=== PATIENT | male | born 1995 | race Two or more races ===

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

== ENCOUNTER 2017-09-13 22:07 | Emergency (ER) | payer SELFPAY ==
[2017-09-13] MEDS: IV NORMAL SALINE 1000ML BAG 1,000 ML IV (22:55)
[2017-09-13 23:39] LABS: BILIRUBIN,URINE NEGATIVE (NEG); CLARITY,URINE CLEAR; COLOR,URINE YELLOW; GLUCOSE,URINE NEGATIVE (NEG); NITRITE,URINE NEGATIVE (NEG); PH,URINE 5.5; PROTEIN,URINE NEGATIVE (NEG-TRACE); UROBILINOGEN,URINE 0.2 mg/dL (0.2 mg/dL)
[2017-09-13 23:45] LABS: BACTERIA,URINE 0 /HPF (0-FEW); RBC,URINE 0 /HPF (0-2); SQUAMOUS EPITHELIAL CELL,UR OCC /LPF; WBC,URINE RARE /HPF (0-4)
== END 2017-09-14 00:58 | disposition home or self-care (01) ==
LOC: ER 09-14 00:58
DX: R19.7 Diarrhea, unspecified (principal)
CPT/HCPCS: 81001; 96360; 99284-25; J7030

== ENCOUNTER 2017-09-14 21:31 | Emergency (ER) | payer SELFPAY ==
[2017-09-14] MEDS: DICYCLOMINE HCL 10 MG CAPSULE PO (23:45)
== END 2017-09-15 00:20 | disposition home or self-care (01) ==
LOC: ER 09-15 00:20
DX: R19.7 Diarrhea, unspecified (principal)
CPT/HCPCS: 87045; 99283

== ENCOUNTER 2017-10-17 17:10 | Inpatient (IN) | payer SELFPAY ==
[2017-10-17 18:00] LABS: ADD MAN DIFF? NO
[2017-10-17 18:03] LABS: BASO % 1 % (0-3); EOS # 0.1 x10^3/uL (0.0-0.7); EOS % 1 % (0-3); HEMOGLOBIN 14.8 g/dL (13.0-17.5); LYMPH # 3.1 x10^3/uL (1.0-4.8); LYMPH % 47 % (24-48); MEAN CORPUSCULAR HEMOGLOBIN 27 pg (25-35); MEAN CORPUSCULAR HGB CONC 34 g/dL (31-37); MEAN CORPUSCULAR VOLUME 81 fL (79-100); MONO # 0.4 x10^3/uL (0.0-1.1); MONO % 7 % (0-9); NEUT # 2.9 x10^3uL (1.8-7.7); NEUT % 44 % (31-73); PLATELET COUNT 191 x10^3/uL (140-400); RED BLOOD COUNT 5.47 x10^6/uL (4.30-5.70); RED CELL DISTRIBUTION WIDTH 13.8 % (11.5-14.5); WHITE BLOOD COUNT 6.5 x10^3/uL (4.0-11.0)
[2017-10-17 18:17] LABS: ANION GAP 6 (6-14); BLOOD UREA NITROGEN 11 mg/dL (8-26); BUN/CREATININE RATIO 11 (6-20); CALCIUM 9.4 mg/dL (8.5-10.1); CARBON DIOXIDE 29 mmol/L (21-32); CHLORIDE 103 mmol/L (98-107); GFR 95.3; GLUCOSE 97 mg/dL (70-99); POTASSIUM 3.8 mmol/L (3.5-5.1); SODIUM 138 mmol/L (136-145)
[2017-10-17 18:25] LABS: TROPONINI < 0.017 ng/mL (0.000-0.055)
[2017-10-17 18:27] LABS: D-DIMER 0.29 ug/mlFEU (0.00-0.50)
[2017-10-17 18:30] LABS: CKMB MASS 4.7 ng/mL (0.0-3.6)
[2017-10-17 18:33] LABS: ALBUMIN 4.2 g/dL (3.4-5.0); ALBUMIN/GLOBULIN RATIO 1.1 (1.0-1.7); ALK PHOS 95 U/L (46-116); ALT (SGPT) 138 U/L (16-63); AST (SGOT) 118 U/L (15-37); TOTAL BILIRUBIN 0.6 mg/dL (0.2-1.0); TOTAL PROTEIN 7.9 g/dL (6.4-8.2)
[2017-10-17 19:08] LABS: CREATINE KINASE 12641 U/L (39-308)
[2017-10-17] MEDS ORDERED: ACETAMINOPHEN 325 MG TABLET. PO (20:00)
[2017-10-17] MEDS ORDERED: ONDANSETRON PF 4 MG/2 ML VIAL. IV (20:00)
[2017-10-17] MEDS ORDERED: fentaNYL PF VIAL 100 MCG/2 ML VIAL IV (20:00)
[2017-10-17] MEDS: IV NORMAL SALINE 1000ML BAG 1,000 ML IV ×2 (20:45→22:00)
[2017-10-17] MEDS: ENOXAPARIN 40 MG/0.4 ML SYRINGE. SQ (23:22)
[2017-10-18 02:25] LABS: CREATINE KINASE 11456 U/L (39-308)
[2017-10-18] MEDS: IV NORMAL SALINE 1000ML BAG 1,000 ML IV ×3 (03:08→19:38)
[2017-10-18 09:25] LABS: ADD MAN DIFF? NO
[2017-10-18 09:37] LABS: BASO % 0 % (0-3); EOS # 0.1 x10^3/uL (0.0-0.7); EOS % 2 % (0-3); HEMATOCRIT 40.5 % (39.0-53.0); HEMOGLOBIN 13.3 g/dL (13.0-17.5); LYMPH # 2.5 x10^3/uL (1.0-4.8); LYMPH % 52 % (24-48); MEAN CORPUSCULAR HEMOGLOBIN 27 pg (25-35); MEAN CORPUSCULAR HGB CONC 33 g/dL (31-37); MEAN CORPUSCULAR VOLUME 81 fL (79-100); MONO # 0.4 x10^3/uL (0.0-1.1); MONO % 9 % (0-9); NEUT # 1.8 x10^3uL (1.8-7.7); NEUT % 37 % (31-73); PLATELET COUNT 173 x10^3/uL (140-400); RED BLOOD COUNT 5.01 x10^6/uL (4.30-5.70); WHITE BLOOD COUNT 4.9 x10^3/uL (4.0-11.0)
[2017-10-18 09:39] LABS: ANION GAP 2 (6-14); BLOOD UREA NITROGEN 8 mg/dL (8-26); CALCIUM 8.5 mg/dL (8.5-10.1); CARBON DIOXIDE 30 mmol/L (21-32); CHLORIDE 107 mmol/L (98-107); CREATININE 0.9 mg/dL (0.7-1.3); GFR 107.6; GLUCOSE 100 mg/dL (70-99); POTASSIUM 3.9 mmol/L (3.5-5.1); SODIUM 139 mmol/L (136-145)
[2017-10-18 12:40] LABS: CREATINE KINASE 8960 U/L (39-308)
[2017-10-18 17:12] LABS: BILIRUBIN,URINE NEGATIVE (NEG); CLARITY,URINE CLEAR; COLOR,URINE YELLOW; GLUCOSE,URINE NEGATIVE (NEG); NITRITE,URINE NEGATIVE (NEG); PH,URINE 7.5; PROTEIN,URINE NEGATIVE (NEG-TRACE); UROBILINOGEN,URINE 0.2 mg/dL (0.2 mg/dL)
[2017-10-18 17:32] LABS: BACTERIA,URINE 0 /HPF (0-FEW); RBC,URINE 0 /HPF (0-2); SQUAMOUS EPITHELIAL CELL,UR FEW /LPF; WBC,URINE 0 /HPF (0-4)
[2017-10-18] MEDS: ALBUTEROL SULFATE 2.5 MG/3 ML NEBU. NEB ×2 (18:04→23:38)
[2017-10-18 18:52] LABS: CREATINE KINASE 8086 U/L (39-308)
[2017-10-18] MEDS: MORPHINE SULFATE 4 MG/ML DISP.SYRIN. IV (19:46)
[2017-10-18] MEDS: ENOXAPARIN 40 MG/0.4 ML SYRINGE. SQ (21:05)
[2017-10-18] MEDS ORDERED: MORPHINE SULFATE 4 MG/ML DISP.SYRIN. IV (23:45)
[2017-10-19 01:12] LABS: CREATINE KINASE 6855 U/L (39-308)
[2017-10-19 05:42] LABS: ADD MAN DIFF? NO
[2017-10-19 05:51] LABS: BASO % 1 % (0-3); EOS # 0.1 x10^3/uL (0.0-0.7); EOS % 2 % (0-3); HEMATOCRIT 37.8 % (39.0-53.0); HEMOGLOBIN 12.6 g/dL (13.0-17.5); LYMPH # 3.2 x10^3/uL (1.0-4.8); LYMPH % 53 % (24-48); MEAN CORPUSCULAR HEMOGLOBIN 27 pg (25-35); MEAN CORPUSCULAR HGB CONC 33 g/dL (31-37); MEAN CORPUSCULAR VOLUME 81 fL (79-100); MONO # 0.5 x10^3/uL (0.0-1.1); MONO % 8 % (0-9); NEUT # 2.3 x10^3uL (1.8-7.7); NEUT % 37 % (31-73); PLATELET COUNT 171 x10^3/uL (140-400); RED BLOOD COUNT 4.67 x10^6/uL (4.30-5.70); RED CELL DISTRIBUTION WIDTH 13.7 % (11.5-14.5); WHITE BLOOD COUNT 6.1 x10^3/uL (4.0-11.0)
[2017-10-19 06:03] LABS: ANION GAP 7 (6-14); BLOOD UREA NITROGEN 10 mg/dL (8-26); CALCIUM 8.3 mg/dL (8.5-10.1); CARBON DIOXIDE 26 mmol/L (21-32); CHLORIDE 108 mmol/L (98-107); CREATININE 0.9 mg/dL (0.7-1.3); GFR 107.6; GLUCOSE 92 mg/dL (70-99); SODIUM 141 mmol/L (136-145)
[2017-10-19 06:28] LABS: CREATINE KINASE 5483 U/L (39-308)
[2017-10-19 13:00] LABS: CREATINE KINASE 5295 U/L (39-308)
[2017-10-19] MEDS: IV NORMAL SALINE 1000ML BAG 1,000 ML IV (15:52)
[2017-10-19 19:16] LABS: CREATINE KINASE 4799 U/L (39-308)
[2017-10-19] MEDS: ENOXAPARIN 40 MG/0.4 ML SYRINGE. SQ (21:15)
[2017-10-20] MEDS: IV NORMAL SALINE 1000ML BAG 1,000 ML IV (00:36)
[2017-10-20 07:28] LABS: ADD MAN DIFF? NO
[2017-10-20 07:38] LABS: BASO % 0 % (0-3); EOS # 0.1 x10^3/uL (0.0-0.7); EOS % 2 % (0-3); HEMATOCRIT 42.8 % (39.0-53.0); HEMOGLOBIN 13.8 g/dL (13.0-17.5); LYMPH % 49 % (24-48); MEAN CORPUSCULAR HEMOGLOBIN 26 pg (25-35); MEAN CORPUSCULAR HGB CONC 32 g/dL (31-37); MEAN CORPUSCULAR VOLUME 82 fL (79-100); MONO # 0.5 x10^3/uL (0.0-1.1); MONO % 8 % (0-9); NEUT # 2.5 x10^3uL (1.8-7.7); NEUT % 41 % (31-73); PLATELET COUNT 190 x10^3/uL (140-400); RED BLOOD COUNT 5.26 x10^6/uL (4.30-5.70); RED CELL DISTRIBUTION WIDTH 13.6 % (11.5-14.5); WHITE BLOOD COUNT 6.1 x10^3/uL (4.0-11.0)
[2017-10-20 08:02] LABS: ALBUMIN 3.9 g/dL (3.4-5.0); ALBUMIN/GLOBULIN RATIO 1.3 (1.0-1.7); ALK PHOS 81 U/L (46-116); ALT (SGPT) 122 U/L (16-63); ANION GAP 8 (6-14); AST (SGOT) 53 U/L (15-37); BLOOD UREA NITROGEN 10 mg/dL (8-26); BUN/CREATININE RATIO 10 (6-20); CALCIUM 8.9 mg/dL (8.5-10.1); CARBON DIOXIDE 28 mmol/L (21-32); CHLORIDE 105 mmol/L (98-107); GFR 95.3; GLUCOSE 88 mg/dL (70-99); SODIUM 141 mmol/L (136-145); TOTAL BILIRUBIN 1.3 mg/dL (0.2-1.0)
[2017-10-20 08:15] LABS: CREATINE KINASE 3290 U/L (39-308)
== END 2017-10-20 15:00 | disposition home or self-care (01) | DRG 558 ==
LOC: ER 17:10 → 5 SOUTH 19:30
PROVIDERS: Internal Medicine
DX: M62.82 Rhabdomyolysis (principal); E86.0 Dehydration
CPT/HCPCS: 36415; 71046; 80048; 80053; 81001; 82550; 82553; 84484; 85025; 85379; 93005; 94640; 94760; 99285; 99285-25; J1650; J2270; J7030; J7613

== ENCOUNTER 2017-11-20 16:17 | Emergency (ER) | payer SELFPAY | END 2017-11-20 16:48 | disposition home or self-care (01) | LOC: ER 16:17 | DX: J39.2 Other diseases of pharynx (principal) | CPT/HCPCS: 99281 ==